=== PATIENT | male | born 1970 | race Caucasian/White ===

== ENCOUNTER 2017-10-22 12:43 | Observation (INO) | payer BC, OTHER ==
[~2017-10-22] VITALS: Ht 182.9 cm; Wt 85.5 kg
[2017-10-22] MEDS ORDERED: ASPIRIN 81 MG CHEW (CHILDREN'S ASA) ONE (12:50)
[2017-10-22] MEDS ORDERED: LIDOCAINE 2% VISCOUS 15 ML UDC ONE (12:50)
[2017-10-22] MEDS ORDERED: ANTACID SUSP 30 ML UDC (MYLANTA) ONE (12:50)
--- NOTE | 2017-10-22 12:59 | ED Chest Pain ---
General Stated Complaint: CHEST PAIN Source: patient Exam Limitations: no limitations History of Present Illness Date Seen by Provider: Oct 22, 2017 Time Seen by Provider: 12:56 Initial Comments to [employer] private vehicle with reports of epigastric/lower chest pain for the past 3 days. He initially believe this to be indigestion. He states as a burning sensation occasionally radiates through to his back. 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 He denies any shortness of breath diaphoresis or nausea. He's been taking [id number] Zyrtec and TUMS without improvement. He is a nonsmoker. He has no personal history of heart disease. He does have high cholesterol and a family history of heart disease however. Timing/Duration: 2-3 days Severity/Quality: moderate, ingestion Location: epigastric Radiation: no radiation, back Activities at Onset: none ASA po SOCIAL SCIENCE TEACHER: No NTG SL SOCIAL SCIENCE TEACHER: No Associated Symptoms: nausea/vomiting Allergies and Home Medications Allergies Coded Allergies: No Known Drug Allergies (Unverified , 10/22/17) Patient Home Medication List Home Medication List Reviewed: Yes Review of Systems Constitutional: see HPI; No diaphoresis EENTM: No Symptoms Reported Respiratory: Denies See HPI, Denies Orthopnea, Denies Shortness of Air Gastrointestinal: See HPI, Abdominal Pain; Denies Diarrhea, Denies Nausea Genitourinary: No Symptoms Reported Musculoskeletal: see HPI, back pain Skin: no symptoms reported Psychiatric/Neurological: No Symptoms Reported Endocrine: No Symptoms Reported Hematologic/Lymphatic: No Symptoms Reported Physical Exam Vital Signs Vital Signs - First Documented 10/22/17 13:03 Temp 97.6 Pulse 92 Resp 25 B/P (MAP) 174/83 (113) Pulse Ox 100 O2 Delivery Room Air O2 Flow Rate 0 Capillary Refill : Height, Weight, BMI Height: ', " Weight: lbs oz, kg Method: ,BMI General Appearance: No Apparent Distress, WD/WN HEENT: PERRL/EOMI, TMs Normal, Normal ENT Inspection Neck: Full Range of Motion, Normal Inspection Respiratory: No Accessory Muscle Use, No Respiratory Distress Cardiovascular: Regular Rate, Rhythm, Normal Peripheral Pulses Gastrointestinal: Normal Bowel Sounds, Non Tender, Soft Extremity: Normal Capillary Refill, Normal Inspection Neurologic/Psychiatric: Alert, Oriented x3, No Motor/Sensory Deficits Skin: Normal Color, Warm/Dry Progress/Results/Core Measures Results/Orders Lab Results Laboratory Tests Test 10/22/17 12:50 Range/Units White Blood Count 6.1 4.3-11.0 10^3/uL Red Blood Count 4.53 4.35-5.85 10^6/uL Hemoglobin 13.4 13.3-17.7 G/DL Hematocrit 40 40-54 % Mean Corpuscular Volume 88 80-99 FL Mean Corpuscular Hemoglobin 30 25-34 PG Mean Corpuscular Hemoglobin Concent 34 32-36 G/DL Red Cell Distribution Width 13.0 10.0-14.5 % Platelet Count 203 130-400 10^3/uL Mean Platelet Volume 11.6 H 7.4-10.4 FL Neutrophils (%) (Auto) 72 42-75 % Lymphocytes (%) (Auto) 16 12-44 % Monocytes (%) (Auto) 8 0-12 % Eosinophils (%) (Auto) 3 0-10 % Basophils (%) (Auto) 1 0-10 % Neutrophils # (Auto) 4.4 1.8-7.8 X 10^3 Lymphocytes # (Auto) 1.0 1.0-4.0 X 10^3 Monocytes # (Auto) 0.5 0.0-1.0 X 10^3 Eosinophils # (Auto) 0.2 0.0-0.3 10^3/uL Basophils # (Auto) 0.0 0.0-0.1 10^3/uL Prothrombin Time 13.0 12.2-14.7 SEC INR Comment 1.0 0.8-1.4 Activated Partial Thromboplast Time 32 24-35 SEC Sodium Level 138 135-145 MMOL/L Potassium Level 4.6 3.6-5.0 MMOL/L Chloride Level 105 98-107 MMOL/L Carbon Dioxide Level 25 21-32 MMOL/L Anion Gap 8 5-14 MMOL/L Blood Urea Nitrogen 17 7-18 MG/DL Creatinine 0.99 0.60-1.30 MG/DL Estimat Glomerular Filtration Rate > 60 BUN/Creatinine Ratio 17 Glucose Level 241 H 70-105 MG/DL Calcium Level 9.6 8.5-10.1 MG/DL Magnesium Level 1.5 L 1.8-2.4 MG/DL Total Bilirubin 0.5 0.1-1.0 MG/DL Aspartate Amino Transf (AST/SGOT) 19 5-34 U/L Alanine Aminotransferase (ALT/SGPT) 27 0-55 U/L Alkaline Phosphatase 107 40-136 U/L Myoglobin 48.9 10.0-92.0 NG/ML Troponin I < 0.30 <0.30 NG/ML Total Protein 7.9 6.4-8.2 GM/DL Albumin 4.7 H 3.2-4.5 GM/DL Lipase 53 8-78 U/L My Orders Orders - DEVON REEVES APRN Cbc With Automated Diff (10/22/17 12:54) Magnesium (10/22/17 12:54) Chest 1 View, Ap/Pa Only (10/22/17 12:54) Ekg Tracing (10/22/17 12:54) Cardiac Profile 1 (10/22/17 12:54) Comprehensive Metabolic Panel (10/22/17 12:54) Myoglobin Serum (10/22/17 12:54) Protime With Inr (10/22/17 12:54) Partial Thromboplastin Time (10/22/17 12:54) O2 (10/22/17 12:54) Monitor-Rhythm Ecg Trace Only (10/22/17 12:54) Lipid Panel (10/23/17 06:00) Aspirin Chewable Tablet (Baby Aspirin Ch (10/22/17 13:00) Saline Lock/Iv-Start (10/22/17 12:54) Lipase (10/22/17 12:54) Antacid Suspension (Mylanta Suspension (10/22/17 13:00) Lidocaine 2% Viscous 15 Ml (Xylocaine Vi (10/22/17 13:00) Magnesium 1 Gm/100 Ml Ivpb (Magnesium Gomez (10/22/17 13:30) Ct Angio Chest/Abd W (10/22/17 13:28) Iohexol Injection (Omnipaque 350 Mg/Ml 1 (10/22/17 14:15) Ns (Ivpb) (Sodium Chloride 0.9%) (10/22/17 14:15) Medications Given in ED Current Medications Medications Dose Ordered Sig/Eligio Route Start Time Stop Time Status Last Admin Dose Admin Al Hydrox/Mg Hydrox/Simethicone 30 ml ONCE ONCE PO 10/22/17 13:00 10/22/17 13:01 DC 10/22/17 13:02 30 ML Aspirin 324 mg ONCE ONCE PO 10/22/17 13:00 10/22/17 13:01 DC 10/22/17 12:52 324 MG Iohexol 125 ml ONCE ONCE IV 10/22/17 14:15 10/22/17 14:16 DC 10/22/17 14:24 125 ML Lidocaine HCl 15 ml ONCE ONCE PO 10/22/17 13:00 10/22/17 13:01 DC 10/22/17 13:02 15 ML Magnesium Sulfate/ Dextrose 100 ml @ 100 mls/hr ONCE ONCE IV 10/22/17 13:30 10/22/17 14:29 DC 10/22/17 13:40 100 MLS/HR Sodium Chloride 250 ml ONCE ONCE IV 10/22/17 14:15 10/22/17 14:16 DC 10/22/17 14:24 80 ML Vital Signs/I&O 10/22/17 10/22/17 13:03 13:03 Temp 97.6 Pulse 92 Resp 25 B/P (MAP) 174/83 (113) Pulse Ox 100 O2 Delivery Room Air Room Air O2 Flow Rate 0 Diagnostic Imaging Diagonstic Imaging: Xray Plain Films/CT/US/NM/MRI: chest Comments NAME: SAUL DE PAZ MED REC#: [id number] PT STATUS: REG ER : 1970 PHYSICIAN: DEVON REEVES APRN ADMIT DATE: 10/22/17/ER Draft Date of Exam:10/22/17 CHEST 1 VIEW, AP/PA ONLY INDICATION: Burning sensation in the chest. TIME OF EXAMINATION: 01:13 p.m. COMPARISON: No prior studies are available for comparison. FINDINGS: The heart size is normal. The pulmonary vascularity is unremarkable. The lungs are clear. No infiltrate, effusion or pneumothorax is detected. IMPRESSION: No acute cardiopulmonary process is detected. Dictated on workstation # [id number] Dict: 10/22/17 1338 Trans: 10/22/17 1342 [facility] [id number] Interpreted by: CORNELL FISCHER MD Electronically signed by: NAME: SAUL DE PAZ MED REC#: [id number] PT STATUS: ADM [place] : 1970 PHYSICIAN: DEVON REEVES APRN ADMIT DATE: 10/22/17/4TH Draft Date of Exam:10/22/17 CT ANGIO CHEST/ABD W PROCEDURE: CT angiography of the abdomen and chest with and without contrast. TECHNIQUE: After intravenous administration of contrast, thin section axial CT angiography of the abdomen and chest were obtained. Multiple MIP reformats were provided. INDICATION: Chest pain. COMPARISON: No prior CT studies are available for comparison. FINDINGS: CTA chest: Evaluation of the pulmonary arterial system is without evidence of thromboembolism. No filling defects are seen within the central, lobar or segmental branches. The thoracic aorta is normal caliber. No dissection is seen. No pericardial or pleural fluid is identified. No pulmonary infiltrates, nodules or masses are seen. IMPRESSION: 1. No evidence of pulmonary embolus or thoracic aortic dissection. CT angiogram abdomen: The liver is unremarkable. No discrete mass is seen. The gallbladder is unremarkable. The pancreas and spleen are unremarkable. No adrenal mass is detected. The kidneys are unremarkable. Aorta is nonaneurysmal. No dissection is seen. The small and large bowel loops are of normal caliber. There is no ascites. No inflammatory process is detected. IMPRESSION: Unremarkable CTA of the abdomen. No acute feature is detected. Dictated on workstation # [id number] Dict: 10/22/17 1439 Trans: 10/22/17 1509 [facility] [id number] Interpreted by: CORNELL FISCHER MD Electronically signed by: Departure Communication (Admissions) Time/Spoke to Admitting Phy: 14:30 Dr Oshea Time/Spoke to Consulting Phy: 13:41 Dr. Tran 1336-he did have resolution in symptoms after the GI cocktail until he sat up in bed at which point discomfort recurred. His brother is at the bedside and states that his own chest pain which ultimately resulted in coronary stenting presented in a similar fashion which was pain that was believed to be indigestion for several months. I spoke with Dr. Tran who recommends observation admission. I'll admit to hospitalist Dr. Oshea and consult cardiology Dr. Tran. Impression Primary Impression: Chest pain Disposition: ADMITTED INPATIENT Condition: Stable Admissions Decision to Admit Reason: Admit from ER (General) Decision to Admit/Date: Oct 22, 2017 Time/Decision to Admit Time: 13:45 Images Torso/Trunk 1 - Other-See Progress Note DEVON REEVES APRN Oct 22, 2017 12:59
[2017-10-22] MEDS ORDERED: ASPIRIN 81 MG CHEW (CHILDREN'S ASA) PO ONE (13:00)
[2017-10-22] MEDS ORDERED: ANTACID SUSP 30 ML UDC (MYLANTA) PO ONE (13:00)
[2017-10-22] MEDS ORDERED: LIDOCAINE 2% VISCOUS 15 ML UDC PO ONE (13:00)
[2017-10-22 13:05] LABS: BASOPHILS % (AUTO) 1 % (0-10); EOSINOPHILS # (AUTO) 0.2 10^3/uL (0.0-0.3); EOSINOPHILS % (AUTO) 3 % (0-10); HEMATOCRIT 40 % (40-54); HEMOGLOBIN 13.4 G/DL (13.3-17.7); LYMPHOCYTES % (AUTO) 16 % (12-44); MEAN CORPUSCULAR HEMOGLOBIN 30 PG (25-34); MEAN CORPUSCULAR HGB CONC 34 G/DL (32-36); MEAN CORPUSCULAR VOLUME 88 FL (80-99); MEAN PLATELET VOLUME 11.6 FL (7.4-10.4); MONOCYTES # (AUTO) 0.5 X 10^3 (0.0-1.0); MONOCYTES % (AUTO) 8 % (0-12); NEUTROPHILS # (AUTO) 4.4 X 10^3 (1.8-7.8); NEUTROPHILS % (AUTO) 72 % (42-75); PLATELET COUNT 203 10^3/uL (130-400); RED BLOOD COUNT 4.53 10^6/uL (4.35-5.85); WHITE BLOOD COUNT 6.1 10^3/uL (4.3-11.0)
[2017-10-22 13:23] LABS: ALANINE AMINOTRANSFERASE 27 U/L (0-55); ALBUMIN 4.7 GM/DL (3.2-4.5); ALKALINE PHOSPHATASE 107 U/L (40-136); BILIRUBIN,TOTAL 0.5 MG/DL (0.1-1.0); BUN/CREATININE RATIO 17; CALCIUM 9.6 MG/DL (8.5-10.1); CARBON DIOXIDE 25 MMOL/L (21-32); CHLORIDE 105 MMOL/L (98-107); CREATININE SERUM 0.99 MG/DL (0.60-1.30); GFR ESTIMATED > 60; GLUCOSE 241 MG/DL (70-105); LIPASE 53 U/L (8-78); MAGNESIUM 1.5 MG/DL (1.8-2.4); POTASSIUM 4.6 MMOL/L (3.6-5.0); SODIUM 138 MMOL/L (135-145); TOTAL PROTEIN 7.9 GM/DL (6.4-8.2)
[2017-10-22 13:30] LABS: MYOGLOBIN SERUM 48.9 NG/ML (10.0-92.0)
[2017-10-22] MEDS ORDERED: METF10002 PO ×2 (13:30→16:42)
[2017-10-22] MEDS ORDERED: LISI10TA2 PO (13:30)
[2017-10-22] MEDS ORDERED: ATOR40TA70 PO (13:30)
[2017-10-22] MEDS ORDERED: METF500T5 (13:30)
[2017-10-22] MEDS ORDERED: GLIM2TAB PO (13:30)
[2017-10-22] MEDS ORDERED: MAGNESIUM 1 GM/100 ML IVPB 100 ML IV ONE (13:30)
[2017-10-22] MEDS ORDERED: SITA100T12 PO (13:30)
--- NOTE | 2017-10-22 13:43 | Diagnostic Imaging Report ---
INDICATION: Burning sensation in the chest. TIME OF EXAMINATION: 01:13 p.m. COMPARISON: No prior studies are available for comparison. FINDINGS: The heart size is normal. The pulmonary vascularity is unremarkable. The lungs are clear. No infiltrate, effusion or pneumothorax is detected. IMPRESSION: No acute cardiopulmonary process is detected. Dictated by: Dictated on workstation # [id number]
[2017-10-22] MEDS ORDERED: NS 250 ML (IVPB) BAG IV ONE (14:15)
[2017-10-22] MEDS ORDERED: IOHEXOL 350 MG/ML 150 ML (OMNIPAQUE 350) VIAL IV ONE (14:15)
--- NOTE | 2017-10-22 15:09 | Diagnostic Imaging Report ---
PROCEDURE: CT angiography of the abdomen and chest with and without contrast. TECHNIQUE: After intravenous administration of contrast, thin section axial CT angiography of the abdomen and chest were obtained. Multiple MIP reformats were provided. INDICATION: Chest pain. COMPARISON: No prior CT studies are available for comparison. FINDINGS: CTA chest: Evaluation of the pulmonary arterial system is without evidence of thromboembolism. No filling defects are seen within the central, lobar or segmental branches. The thoracic aorta is normal caliber. No dissection is seen. No pericardial or pleural fluid is identified. No pulmonary infiltrates, nodules or masses are seen. IMPRESSION: 1. No evidence of pulmonary embolus or thoracic aortic dissection. CT angiogram abdomen: The liver is unremarkable. No discrete mass is seen. The gallbladder is unremarkable. The pancreas and spleen are unremarkable. No adrenal mass is detected. The kidneys are unremarkable. Aorta is nonaneurysmal. No dissection is seen. The small and large bowel loops are of normal caliber. There is no ascites. No inflammatory process is detected. IMPRESSION: Unremarkable CTA of the abdomen. No acute feature is detected. Dictated by: Dictated on workstation # [id number]
[2017-10-22 15:50] VITALS: BP 131/76
[2017-10-22] MEDS ORDERED: CATHETER FLUSH 10 ML SYR IV PRN (16:15)
[2017-10-22] MEDS: PANTOPRAZOLE 40 MG (PROTONIX) TAB PO SCH (16:24)
[2017-10-22] MEDS: CLOPIDOGREL 75 MG (PLAVIX) TABLET PO SCH (16:25)
[2017-10-22 19:35] VITALS: BP 112/68
[2017-10-22] MEDS: CATHETER FLUSH 10 ML SYR IV SCH (22:00)
[2017-10-22 23:28] VITALS: BP 112/68
[2017-10-23 04:12] VITALS: BP 117/71
[2017-10-23 05:05] LABS: CHOLESTEROL 112 MG/DL (< 200); HDL CHOLESTEROL 37 MG/DL (40-60); TRIGLYCERIDES 72 MG/DL (<150); VLDL CHOLESTEROL 14 MG/DL (5-40)
[2017-10-23] MEDS: PANTOPRAZOLE 40 MG (PROTONIX) TAB PO SCH (05:57)
[2017-10-23] MEDS: CATHETER FLUSH 10 ML SYR IV SCH ×2 (05:58→14:30)
[2017-10-23] MEDS ORDERED: GLIMEPIRIDE 4 MG (AMARYL) TAB PO NR (07:30)
[2017-10-23 07:59] VITALS: BP 118/63
[2017-10-23] MEDS: CLOPIDOGREL 75 MG (PLAVIX) TABLET PO SCH (08:42)
[2017-10-23] MEDS ORDERED: ASPIRIN 81 MG CHEW (CHILDREN'S ASA) PO SCH (09:00)
[2017-10-23] MEDS ORDERED: PANT40TA3 PO (11:00)
--- NOTE | 2017-10-23 11:08 | Short Stay Summary-Hospitalist ---
History of Present Illness HPI/Chief Complaint Mr. Shaver is a 47-year-old white male who reports a 2 week history of intermittent precordial predominantly lower as well as epigastric discomfort described as burning in nature. It is not aggravated by activity. In fact he works at [employer] and had been moving heavy appliances without exacerbation of symptoms. This morning around 11 o'clock a.m. he had a prickly bad episode that radiated to his back. Was not associated with nausea or difficulty swallowing he also denied associated diaphoresis or shortness of breath. He took 2 Tums with no improvement. His brother had had similar reported symptoms earlier this year that was felt to be reflux but ultimately was noted to have cardiovascular disease requiring stent placement with resolution of the symptoms. He is in his late 40s. For this reason he presented emergency room to rule out cardiac pathology. He considers himself physically fit there is been no problems with orthopnea PND pedal edema or dyspnea on exertion. He has a history of hyperlipidemia and type II diabetes mellitus. He has been on high- dose statin therapy for nearly 20 years for his report. He scheduled to see his primary care physician Dr. Smyth this Wednesday for regular diabetic follow- up. He has no known past history of vascular disease. Date Seen 10/23/17 Time Seen by Provider: 10:20 Attending Physician Nishant Oshea MD PCP Mallorie Smyth MD Referring Physician Date of Admission Oct 22, 2017 at 14:57 Home Medications & Allergies Home Medications Reviewed patient Home Medication Reconciliation performed by pharmacy medication reconciliations calibration technician and/or nursing. Patients Allergies have been reviewed. Allergies Allergies Coded Allergies No Known Drug Allergies (Unverified10/22/17) Past Dvuycsy-Crxheq-Nhmszm Hx Past Med/Social Hx: Reviewed and Corrections made Patient Social History Alcohol Use: Denies Use Recreational Drug Use: No Smoking Status: Never a Smoker Physical Abuse Screen: No Sexual Abuse: No Recent Foreign Travel: No Contact w/other who traveled: No Recent Hopitalizations: No Recent Infectious Disease Expo: No Seasonal Allergies Seasonal Allergies: No Past Medical History Surgeries: Eye Surgery Cardiac: High Cholesterol, Hypertension Gastrointestinal: Gastroesophageal Reflux Endocrine: Diabetes, Non-Insulin dep Are Your Blood Sugars Over 250: No History of Blood Disorders: No Family History Cardiovascular disease 19 MOTHER G8 BROTHER Diabetes mellitus 19 MOTHER G8 BROTHER Hypertension G8 BROTHER Neoplasm 19 FATHER Review of Systems Constitutional: no symptoms reported, see HPI Respiratory: no symptoms reported, see HPI; No cough, No dyspnea on exertion, No hemoptysis, No orthopnea, No phlegm, No short of breath Gastrointestinal: no symptoms reported, abdominal pain (Lower precordial and epigastric); No constipation; diarrhea (Intermittent small volume diarrhea not a new symptom for this patient aggravated by stress); No dysphagia, No hematemesis, No heartburn, No jaundice, No loss of appetite, No melena, No nausea, No vomiting, No other Physical Exam Physical Exam Vital Signs Vital Signs - First Documented 10/22/17 13:03 Temp 97.6 Pulse 92 Resp 25 B/P (MAP) 174/83 (113) Pulse Ox 100 O2 Delivery Room Air O2 Flow Rate 0 Capillary Refill : Less Than 3 Seconds Height, Weight, BMI Height: 6', 0.00" Weight: 188lbs 7.0oz, [id number] Method:Stated ,25.6BMI General Appearance: No Apparent Distress, WD/WN Neck: Full Range of Motion, Normal Inspection, Non Tender, Supple, Carotid Bruit Respiratory: Chest Non Tender, Lungs Clear, Normal Breath Sounds, No Accessory Muscle Use, No Respiratory Distress Cardiovascular: Regular Rate, Rhythm, No Edema, No Gallop, No JVD, No Murmur, Normal Peripheral Pulses Gastrointestinal: Normal Bowel Sounds, No Organomegaly, No Pulsatile Mass, Non Tender, Soft Extremity: Normal Capillary Refill, Normal Inspection, Normal Range of Motion, Non Tender, No Calf Tenderness, No Pedal Edema Neurologic/Psychiatric: Alert, Oriented x3, Normal Mood/Affect Results Results/Procedures Labs Laboratory Tests 10/22/17 12:50 Patient resulted labs reviewed. Short Stay Diagnosis Discharge Diagnosis-Short Stay Admission Diagnosis 1. Chest pain 2. Hyperlipidemia 3. Type II diabetes mellitus. Final Discharge Diagnosis 1. Chest pain unknown etiology acute coronary syndrome ruled out 2. Type II diabetes mellitus. 3. Hyperlipidemia. Conclusion Plan Mr. Shaver was admitted to the floor on telemetry. EKG revealed no evidence for ischemia obtain while the patient was having symptoms. His pain resolved for several hours questionable benefit from a GI cocktail. Serial troponin levels were normal. This and his history suggest noncardiac related chest pain questionably reflux in etiology. He does however have a family history for early coronary disease with her brother who reportedly had similar symptoms secondary to coronary disease. Dr. Tran is been consult did and I suspect some form of cardiovascular setting will be performed and we'll defer to Dr. Tran. We will continue home medications with the addition temporarily of pantoprazole 40 mg daily. 30 tabs with no refills were electronically filed at [facility]. He is to keep his follow-up with Dr. Smyth provided that he is discharged later today by Dr. Tran after his evaluation. We'll defer antiplatelet therapy per Dr. Tran. Clinical Quality Measures AMI/AHF: ASA po Prior to arrival: No DVT/VTE Risk/Contraindication: Risk Factor Score Per Nursin RFS Level Per Nursing on Admit: 1=Low/No VTE PPX Copy Copies To 1: MALLORIE SMYTH MD, MARK D MD Oct 23, 2017 11:08
[2017-10-23 12:00] VITALS: BP 120/77
--- NOTE | 2017-10-23 12:29 | Consultation-Cardiology ---
HPI-Cardiology Cardiology Consultation: Date of Consultation 10/23/17 Date of Admission Attending Physician Elpidio Oshea MD Admitting Physician Mallorie Kang MD Consulting Physician Ludy TRAN MD HPI: Time Seen by Provider: 12:30 Chief Complaint: epigastric discomfort this is a 47-year-old gentleman who denies active smoking but has diabetes and positive family history for CAD who presents with complains of epigastric distress. No clear chest pain or other cardiac symptoms. No radiation. No exacerbating or relieving factors. Mild to moderate discomfort. Review of Systems-Cardiology Review of Systems Constitutional: As described under HPI; No As described under HPI, No no symptoms reported, No chills, No fever, No lightheadedness Eyes: No As described under HPI, No no symptoms reported, No blindness, No blurred vision, No contact lenses, No drainage, No decreased acuity, No foreign body sensation, No pain, No vision change Ears/Nose/Throat: No As described under HPI, No no symptoms reported, No chronic hearing loss, No ear discharge, No ear pain, No nasal drainage, No ulcerations Respiratory: No no symptoms reported; As described under HPI; No As described under HPI, No cough, No orthopnea, No shortness of breath, No SOB with excertion Cardiovascular: No no symptoms reported; As described under HPI; No As described under HPI, No chest pain, No edema, No irregular heart rate, No lightheadedness, No palpitations Gastrointestinal: No no symptoms reported, No As described under HPI, No abdomen distended; abdominal pain; No blood streaked bowels, No constipation, No diarrhea, No nausea, No vomiting, No stool coloration changes Genitourinary: No As described under HPI, No burning, No dysuria, No discharge , No frequency, No flank pain, No hematuria, No urgency Skin: No rash, No skin related problems, No ulcerations Psychiatric/Neurological: No anxiety, No depression, No seizure, No focal weakness, No syncope Hematologic: No bleeding abnormalities ACX-Zbiwco-Aarwuf Hx Patient Social History Alcohol Use: Denies Use Recreational Drug Use: No Smoking Status: Never a Smoker Recent Foreign Travel: No Recent Infectious Disease Expo: No Hospitalization with Isolation: Denies Physical Abuse Screen: No Sexual Abuse: No Past Medical History PMH As described under Assessment. Family Medical History Family History: Cardiovascular disease 19 MOTHER G8 BROTHER Diabetes mellitus 19 MOTHER G8 BROTHER Hypertension G8 BROTHER Neoplasm 19 FATHER Allergies and Home Medications Allergies Coded Allergies: No Known Drug Allergies (Unverified , 10/22/17) Home Medications Aspirin 81 Mg Tab.chew, 81 MG PO DAILY@0900 Prescribed by: RUDY SORTO on 10/23/17 1442 Atorvastatin Calcium 40 Mg Tablet, 40 MG PO HS, (Reported) Clopidogrel Bisulfate 75 Mg Tablet, 75 MG PO DAILY Prescribed by: RUDY SORTO on 10/23/17 1442 Glimepiride 2 Mg Tablet, 3 MG PO DAILY, (Reported) TAKES 1.5 TABS Lisinopril 10 Mg Tablet, 10 MG PO DAILY, (Reported) Metformin HCl 1,000 Mg Tablet, 1,000 MG PO DAILY, (Reported) TAKES IN THE MORNING Metformin HCl 1,000 Mg Tablet, 1,500 MG PO HS, (Reported) TAKES 1.5 TABS Pantoprazole Sodium 40 Mg Tablet.dr, 40 MG PO DAILY@0700 Prescribed by: ELPIDIO OSHEA on 10/23/17 1100 Sitagliptin Phosphate 100 Mg Tablet, 100 MG PO DAILY, (Reported) Patient Home Medication List Home Medication List Reviewed: Yes Physical Exam-Cardiology Physical Exam Vital Signs/I&O 10/23/17 10/23/17 10/23/17 10/23/17 07:37 07:59 12:00 13:00 Temp 97.5 98.0 Pulse 68 73 67 79 Resp 22 20 B/P (MAP) 118/63 (81) 120/77 (91) Pulse Ox 99 99 O2 Delivery Room Air Room Air 10/23/17 15:05 B/P (MAP) 10/23/17 00:00 Intake Total 740 ml Balance 740 ml Capillary Refill : Less Than 3 Seconds Constitutional: appears stated age, AAO x 3; No apparent distress; well- developed, well-nourished HEENT: PERRL; No normal ENT inspection, No TMs normal, No pharynx normal, No scleral icterus (R), No scleral icterus (L), No pale conjunctivae (R), No pale conjunctivae (L), No photophobia, No TM abnormal (R), No TM abnormal (L), No pharyngeal erythema, No tonsillar exudate, No other, No discharge, No EOMI; hearing is well preserved; No hard of hearing; oral hygience is good; No ulceration, No xanthelasmas are seen Neck: No carotid bruit; carotid pulses are 2 + bilaterally Respiratory: chest is bilaterally symmetric, lungs clear to auscultation Cardiovascular: regular rate-rhythm, S1 and S2 Gastrointestinal: No tender, No soft, No round, No distended, No pulsatile mass , No organomegaly, No guarding, No rebound, No tenderness, No hernia, No mass, No audible bowel sounds, No abnormal bowel sounds, No abdominal bruits, No spleenomegaly, No other Rectal: deferred Extremities: No normal range of motion, No non-tender, No normal inspection, No pedal edema, No calf tenderness, No normal capillary refill, No pelvis stable , No calf tenderness, No inflammation, No pedal edema, No slow capillary refill , No swelling, No other, No abrasion, No clubbing, No cyanosis, No ecchymosis, No laceration, No no lower extremity edema bilateral, No significant edema, No tenderness, No wound Neurologic/Psychiatric: no motor/sensory deficits, alert, normal mood/affect, oriented x 3, power is 5/5 both on sides Skin: No normal color, No warm/dry, No cyanosis, No cool, No diaphoresis, No damp, No ecchymosis, No jaundice, No mottled, No pallor, No rash, No tattoos/ piercings, No ulcerations, No rash on exposed areas, No ulcerations on exposed areas, No other Data Review Labs Laboratory Tests 10/22/17 19:00: Troponin I < 0.30 10/23/17 01:09: Troponin I < 0.30 10/23/17 04:00: Triglycerides Level 72, Cholesterol Level 112, LDL Cholesterol Direct 59, VLDL Cholesterol 14, HDL Cholesterol 37L ECG Impression ECG Initial ECG Rhythm: Normal Sinus Initial ECG Impression: Normal A/P-Cardiology Assessment/Admission Diagnosis epigastric pain, Diabetes, Family history of CAD. Plan acute coronary syndrome was ruled out with negative serial troponin and negative EKG. echocardiogram is pending. I discussed at length with the patient and recommended early nuclear stress testing. If the patient has recurrent chest discomfort he will seek immediate medical attention. We will start the patient on aspirin, Plavix and Lipitor. Continue treatment for diabetes. Thank you for your consultation. Please call me if you have any questions. Johnnie Tran MD, FACP, FACC, FSCAI, FHRS, CCDS Interventional Cardiology Cardiac Electrophysiology Vascular Medicine and Endovascular Interventions Clinical Quality Measures AMI/AHF: ASA po Prior to arrival: No DVT/VTE Risk/Contraindication: Risk Factor Score Per Nursin RFS Level Per Nursing on Admit: 1=Low/No VTE PPX Ludy TRAN MD Oct 23, 2017 12:29
[2017-10-23] MEDS ORDERED: ASPI-999 PO (14:42)
[2017-10-23] MEDS ORDERED: CLOP75TA28 PO (14:42)
== END 2017-10-23 11:00 | disposition home or self-care (01) ==
LOC: ER 12:47 → UNDOADMOB 14:57 → 4TH 14:57 → UNDODISOB 10-23 15:05
PROVIDERS: ADMIT Internal Medicine; ATTEND Internal Medicine
DX: R07.9 Chest pain, unspecified (principal); E78.5 Hyperlipidemia, unspecified; E11.9 Type 2 diabetes mellitus without complications; I10 Essential (primary) hypertension; K21.9 Gastro-esophageal reflux disease without esophagitis; Z82.49 Family history of ischemic heart disease and other diseases of the circulatory system; Z79.82 Long term (current) use of aspirin; Z79.84 Long term (current) use of oral hypoglycemic drugs; Z79.899 Other long term (current) drug therapy
CPT/HCPCS: 36415; 71045; 71275; 74175; 80053; 80061; 83690; 83735; 83874; 84484; 85025; 85610; 85730; 93005; 93041; 93306; 96365; G0378

== ENCOUNTER → 2017-11-04 | Outpatient (CLI) | payer BC ==
[~2017-11-04] MED LIST: ASPI-999 PO; ATOR40TA70 PO; CATHETER FLUSH 10 ML SYR IV PRN; CLOP75TA28 PO; GLIM2TAB PO; LISI10TA2 PO; METF10002 PO; METF500T5; PANT40TA3 PO; REGADENOSON 0.4 MG/5 ML SYR (LEXISCAN) IV ONE; SITA100T12 PO
[2017-11-04 09:27] VITALS: BP 138/85
--- NOTE | 2017-11-04 16:34 | Cardiology Stress Test Report ---
Stress Test Report Type of NM Stress Test: Test Type: LEXISCAN 0.4MG/5ML Date of Procedure/Referring: Date of Procedure: Nov 04, 2017 PCP Ludy Tran MD Admitting Physician Mallorie Kang MD Indications: Chest pain Baseline Heart Rate: 56 Baseline Blood Pressure: Blood Pressure Systolic: 126 Blood Pressure Diastolic: 76 Baseline EKG: Baseline EKG: sinus rhythm Summary: The patient was brought to the stress lab after informed consent was taken. Stress test was performed according to the Lexiscan protocol. 0.4 mg of IV Lexiscan was given. Low-grade exercise was performed. Baseline EKG showed sinus rhythm at 56BPM. Initial blood pressure was 126/76 mmHg. Maximum heart rate was 127bpm and blood pressure 167/62 mmHg. Patient did not have any chest pain, arrhythmias or ST segment changes during the stress test. 10.97 mCi of Myoview were given for rest imaging and 28.2 mCi of Myoview given for stress imaging. Transient ischemic dilatation score 1.11, EF 51 percent. Normal wall motion.Small mild apical reversible defect.. Conclusion: Pharmacological stress test was negative for ischemia. Normal LV function with no wall motion abnormalities. Small apical reversible defect. Clinical correlation is recommended. Ludy TRAN MD Nov 04, 2017 16:33
[2017-11-05 16:15] VITALS: BP 126/76
== END ==
LOC: CARD 08:01
PROVIDERS: ATTEND Internal Medicine Interventional Cardiology
DX: R07.9 Chest pain, unspecified (principal); E11.9 Type 2 diabetes mellitus without complications
CPT/HCPCS: 78452; 93017